=== PATIENT | female | born 1985 | race Caucasian/White ===

== ENCOUNTER 2020-01-08 07:00 | Outpatient (CLI) | payer OTHER ==
[2020-01-08 20:56] LABS: TRICHOMONAS VAGINALIS DNA NEGATIVE (NEGATIVE)
== END 2020-01-08 23:59 | disposition home or self-care (01) ==
LOC: LAB.R 07:00
PROVIDERS: ATTEND Obstetrics & Gynecology
DX: Z36.85 Encounter for antenatal screening for Streptococcus B (principal); Z11.3 Encounter for screening for infections with a predominantly sexual mode of transmission
CPT/HCPCS: 87491; 87591; 87661; 87797

== ENCOUNTER 2020-01-08 14:22 | Outpatient (CLI) | payer OTHER ==
[2020-01-08 14:46] VITALS: BP 114/77
--- NOTE | 2020-01-08 19:38 | PROCEDURE REPORT ---
- HPI Diagnosis/Indication for NST: Intrauterine growth restriction (Pt was suspected to have IUGR. Late Transfer from [facility]. LMP is discordant to two [place] for dating.) Current EDU 01/27/20 Gestation 37 Weeks and 2 Days 3 Para 2 Vital Signs Temperature 37.1 C 01/08/20 14:44 Heart Rate 90 01/08/20 14:44 Respiratory Rate 18 01/08/20 14:44 Blood Pressure 114/77 01/08/20 14:44 Temperature 37.1 C 01/08/20 14:44 Heart Rate 90 01/08/20 14:44 Respiratory Rate 18 01/08/20 14:44 Blood Pressure 114/77 01/08/20 14:44 O2 Saturation - NST Procedure NST Procedure Start Date 01/08/20 Start Time 14:32 Stop Time 15:04 Vibroacoustic Stimulation Used No Patient States Movement Yes - Results and Plan Findings/Impression: Reactive NST Pt reassured awaiting US from [facility].
== END 2020-01-08 15:15 | disposition home or self-care (01) ==
LOC: WFO 14:22 → FBP 14:25 → WFO 15:15
PROVIDERS: ATTEND Obstetrics & Gynecology
DX: O36.5930 Maternal care for other known or suspected poor fetal growth, third trimester, not applicable or unspecified (principal); Z3A.37 37 weeks gestation of pregnancy
CPT/HCPCS: 59025

== ENCOUNTER 2020-01-24 11:43 | Outpatient (CLI) | payer OTHER ==
[2020-01-24 11:53] VITALS: BP 122/77
--- NOTE | 2020-02-04 12:25 | PROCEDURE REPORT ---
- HPI Diagnosis/Indication for NST: Decreased movement Current EDU 01/27/20 Gestation 39 Weeks and 4 Days 3 Para 2 Vital Signs Temperature 36.9 C 01/24/20 11:51 Heart Rate 57 L 01/24/20 11:51 Respiratory Rate 16 01/24/20 11:51 Blood Pressure 122/77 01/24/20 11:51 O2 Saturation 100 01/24/20 11:51 Temperature 36.9 C 01/24/20 11:51 Heart Rate 57 L 01/24/20 11:51 Respiratory Rate 16 01/24/20 11:51 Blood Pressure 122/77 01/24/20 11:51 O2 Saturation 100 01/24/20 11:51 - NST Procedure NST Procedure Start Date 01/24/20 Start Time 11:50 Stop Time 12:20 Vibroacoustic Stimulation Used No Patient States Movement Yes: decreased - Results and Plan Findings/Impression: reactive NST Plan: PRN
== END 2020-01-24 12:25 | disposition home or self-care (01) ==
LOC: WFO 11:43 → FBP 11:45 → WFO 12:25
PROVIDERS: ATTEND Obstetrics & Gynecology
DX: O36.8130 Decreased fetal movements, third trimester, not applicable or unspecified (principal); Z3A.39 39 weeks gestation of pregnancy
CPT/HCPCS: 59025

== ENCOUNTER 2020-04-22 07:00 | Outpatient (CLI) | payer OTHER ==
[2020-04-22 21:44] LABS: TRICHOMONAS VAGINALIS DNA NEGATIVE (NEGATIVE)
== END 2020-04-22 23:59 | disposition home or self-care (01) ==
LOC: LAB.R 07:00
PROVIDERS: ATTEND Obstetrics & Gynecology
DX: Z11.3 Encounter for screening for infections with a predominantly sexual mode of transmission (principal)
CPT/HCPCS: 87491; 87591; 87661